=== PATIENT | male | born 1955 | race Caucasian/White ===

== ENCOUNTER 2021-08-12 08:03 | Day surgery (SDC) | payer OTHER ==
[2021-08-08 13:57] VITALS: BMI 24.5
[2021-08-12] MEDS ORDERED: PROPOFOL 20 ML ONE ×3 (09:20)
[2021-08-12 10:13] VITALS: TEMP 98.1
[2021-08-12 10:48] VITALS: BP 101/67; PULSE 68
== END 2021-08-12 11:00 | disposition home or self-care (01) ==
LOC: FASU-ENDO 08:03
PROVIDERS: ATTEND Internal Medicine Gastroenterology
PROC: 0DJD8ZZ Inspection of Lower Intestinal Tract, Via Natural or Artificial Opening Endoscopic (ICD-10-PCS; principal; 2021-08-12 09:52)
DX: Z86.010 Personal history of colon polyps (principal); Z83.71 Family history of colonic polyps; Z80.0 Family history of malignant neoplasm of digestive organs; K57.30 Diverticulosis of large intestine without perforation or abscess without bleeding